=== PATIENT | male | born 2005 | race Caucasian/White ===

== ENCOUNTER 2024-02-27 16:22 | Outpatient (CLI) | payer OTHER, SELFPAY | END 2024-02-27 16:23 | disposition home or self-care (01) | LOC: NFLDREF 03-18 05:36 | PROVIDERS: Visit Provider Family Medicine | DX: R30.0 Dysuria (principal); A64 Unspecified sexually transmitted disease | CPT/HCPCS: 87086; 87491; 87591 ==

== ENCOUNTER 2025-06-14 13:23 | Emergency (ER) | payer OTHER, SELFPAY ==
--- OUTSIDE RECORDS SUMMARY | 2025-06-14 13:26 | XMS_ITS | Clinical Summary ---
Author Organization [facility] Address [address] [place] [id number] Care Team Providers Care Automobile Mechanic Name Role Phone Unavailable Primary Care Provider Unavailabl e Allergies No known active allergies Medications NO ACTIVE MEDICATIONS Active Active Problems No known active problems Social History Tobacco Use Types Packs/Day Years Used Date Smoking Tobacco: Never Alcohol Use Standard Drinks/Week Comments Not Asked 0 (1 standard drink = 0.6 oz pur e alcohol) Adolescent Education Answer Date Record ed Getting School Help Needed Not on file 06/23 Sex and Gender Information Value Date Recorded Sex Assigned at Not on file Legal Sex Male 4:32 AM FOCUSER Gender Identity Not on file Sexual Orientation Not on file Last Filed Vital Signs Vital Sign Reading Time Taken Comments Blood Pressure 111/61 08/14/2021 7:49 PM FOCUSER Pulse 71 08/14/2021 7:49 PM FOCUSER Temperature 36.2 C (97.1 F) 08/14/2021 7:49 PM FOCUSER Respiratory Rate 16 08/13/2010 3:02 PM FOCUSER Oxygen Saturation 100% 08/14/2021 7:49 PM FOCUSER Inhaled Oxygen Concentration - - Weight 62.6 kg (138 lb 1.6 oz) 08/14/2021 7:49 P M FOCUSER Height 144.8 cm (4' 9) 05/21/2014 8:01 PM CDT Body Mass Index - - Plan of Treatment Not on file Insurance MEDICA CHOICE MEDICA CHOICE Member Subscriber Plan / Payer (Ef fective 2020-Present) Name:Hudson Rivera Relation to Subscriber:Child Name:Ole Rivera Date of :1974 (Home) Address: [address] [place] [id number] Payer ID:[id number] (NAIC) Type:Indemnity Address: [place] [id number]
--- OUTSIDE RECORDS SUMMARY | 2025-06-14 13:26 | XMS_ITS | Clinical Summary ---
Author Organization [employer] [facility] Address [address] [place] [address] Care Team Providers Care Bakery Supervisor Name Role Phone Vince Chow MD Primary Care Provider [phone] Allergies Active Allergy Reactions Criticality Noted Date Comments Tree Nuts Throat Swelling/Closing High 08/13/2024 Medications cetirizine (ZYRTEC) 10 mg tabletIndications:Jono rgic rhinoconjunctivitis Take 1 Tablet (10 mg) by mouth once daily. 90 Tablet 3 021 Active EPINEPHrine (EPIPEN) 0.3 mg/0.3 mL auto-injectorIndicatio ns:Food allergy Inject 0.3 mg (1 Pen) intramuscular each time if needed for Allergic Reaction. 2 Each 1 024 Active fluticasone (50 mcg per actuation) nasal solution (FLONASE)Indications:O talgia of left ear Inhale 2 Sprays in both nostrils once daily. 16 g 025 Active Active Problems Problem Noted Date Diagnosed Date Anemia, unspecified 10/30/2007 Overview (10/30/2007): improved on iron supplement Resolved Problems Problem Noted Date Diagnosed Date Resolved Date Ocular migraine 11/15/2021 03/10/2025 Blurred vision 11/15/2021 03/10/2025 Visual disturbance 11/15/2021 Febrile convulsions (simple), unspecified 10/30/2005 03/16/2022 Convulsions in 10/19/200503/16 Overview (10/19/2005): febrile, nl mri brain, spinal tap Encounters Date Type Department Care Team Description 05/30/2025 11:35 AM CDT Office Visit [facility] [address] [place] [phone] Mukesh Dorman PA Throat Problem (Sore throat); Ear Problem (Left ear pain) 05/30/2025 Travel 03/30/2025 8:45 AM CDT Office Visit [facility] [address] [place] [address] Vince Chow MD Physical (Annual, labs ); Urinary Problem 03/30/2025 Travel from Last 3 Months Immunizations Immunization Administration Dates Next Due AMB Influenza, (Flumist) Dedra e Intranasal,LAIV4 (Flu Clinic Only) 06/29/2014,07/29/2013,07/21/2010 AMB Influenza, IIV4 PF (=>6 mos Flulaval,Fluzone Fluarix)(Flu Clinic Only) 08/01/2019,07/26/2018 COVID-19 vaccine (Etix NTech 30mcg/0.3mL) PF, MDV 02/02/2021 DTaP 02/19/2005 LUiE-TlyE-MLA (Pediarix) 06/01/2004,03/28/2004,0 01/20/2004 DTaP-IPV (Kinrix) 12/01/2008 HIB PRP-OMP (PedvaxHIB) 11/29/2004,08/23,03/28/2004,01/19 HPV 9 (Gardasil 9) 07/20/2016,01/24/2016 Hepatitis A (Peds) 07/29/2013,08/26/2012 Influenza A (H1N1), Inactiva marie (Age >=3 Years) 08/18/2009 Influenza Virus, Unspecified 08/17/2005,08/23/20 04,07/21/2004 Influenza, IIV3 (Age 6-35 mos) 08/02/2006 Influenza, IIV3 (Age >=3 years) 08/05/2007 Influenza, IIV4 08/21/2023, 2,07/27/2020,08/02,07/20/2016,07/08/2015 Influenza,LAIV4 Live Intrana christa (Flumist) 08/26/2012,08/02/2011,07/14/2009,08/06 MENINGOCOCCAL VACCINE 2 VIAL 2MO-55YO (MENVEO) 07/27/2020,01/24/2016 MMR 12/01/2008,11/29/2004 Meningococcal B 03/16/2022 Pneumococcal conj 7-Valent (Prevnar 7) 5,06/01/2004,01/20/2004 Tdap 01/24/2016 Varicella Vaccine 12/01/2008,10/30/2005 Family History Medical History Relation Name Comments Seizures Brother febrile Allergies Father htn, melanoma Stroke Maternal Grandfather Good Health Mother Cancer Paternal Grandmother Relation Name Status Comments Brother Alive Father Alive Maternal Grandfather Mother Alive Paternal Grandmother Sister Alive Social History Tobacco Use Types Packs/Day Years Used Date Smoking Tobacco: Never Smokeless Tobacco: Never Comments:No passive smoke ex posure Alcohol Use Standard Drinks/Week Comments Yes 1 (1 standard drink = 0.6 oz pur e alcohol) occasion PHQ-2 Answer Date Recorded PHQ-2 TOTAL SCORE 0 03/30/2025 Social Connections Answer Date Recorded Do you often feel lonely or isolated from those around you? 0 03/30/2025 Financial Resource Strain Answer Date R ecorded Difficulty of Paying Living Expenses 3 03/30/2025 Difficulty of Paying Living Expenses Not on file 03/30/2025 Food Insecurity Answer Date Recorded Do you worry your food will run out before you are able to buy more? 1 03/30/2025 Transportation Needs Answer Date Record ed Does lack of transportation keep you from medica l appointments? 1 03/30/2025 Does lack of transportation keep you from work, meetings or getting things that you need? 1 03/30/2025 Housing Stability Answer Date Recorded What is your housing situation today? 1 03/30/2025 Utilities Answer Date Recorded Do you have trouble paying f or utilities (for example, heat, electricity, water, phone)? 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 Gender Identity Not on file Sexual Orientation Not on file Obstetrics History Last Filed Vital Signs Vital Sign Reading Time Taken Comments Blood Pressure 111/73 05/30/2025 11:34 AM CDT Pulse 64 05/30/2025 11:34 AM CDT Temperature 36.3 C (97.3 F) 05/30/2025 11:34 AM CDT Respiratory Rate 16 05/30/2025 11:3 4 AM CDT Oxygen Saturation 98% 05/30/2025 11: 34 AM CDT Inhaled Oxygen Concentration - - Weight 63.9 kg (140 lb 14.4 oz) 03/30/2025 8:50 AM CDT Height 188 cm (6' 2) 03/30/2025 8:50 AM CDT Body Mass Index 18.09 03/30/2025 8:50 AM CDT Plan of Treatment Health Maintenance Due Date Last Done Comments COVID-19 vaccine series ( season) 2025 08/21/2023, 09/18/2022, 09/09/2021, Additional history exists Influenza Vaccine (#1) 2025 , 08/25/2022, 07/27/2020, Additional history exists Tetanus booster 01/23/2026 01/24/2016 BMI (ht and wt on same day) for age 18+ 03/30/2026 03/30/2025, 08/13/2024, 01/03/2024, Additional history exists Depression screening for age 12+ 03/30/2026 03/30/2025, 08/13/2024, 05/28/2023, Additional history exists RSV vaccine for adults or (1 - 1-dose 75+ series) 2078 Hepatitis B series for 19+ Completed 06/01, 03/28/2004, 01/20/2004 Pneumococcal series for age 6-49 Aged Out 02/19/2005, 06/01/2004, 01/20/2004 No longer eligible based on patient's age to complete this topic HPV series for age 9-45 Completed 07/20/2016, 01/23 Meningococcal series for age 11-21 Completed 07/27/2020, 01/24/2016 Hepatitis C screening for age 18-79 Completed 04/10/2024, 02/24/2024, 09/25/2023, Additional history exists HIV for age 15-65 Completed 03/30/2025, , 02/24/2024, Additional history exists Procedures Procedure Name Priority Date/Time Associated Diagnosis Comments STREP A PCR Routine 05/30/2025 11:40 AM CDT Throat pain THROAT RAPID STREP ONLY CLINIC Routine 05/30/2025 11:40 AM CDT Throat pain GC CHLAMYDIA TRACH PROBE Routine 03/30/2025 9:31 AM CDT Urethral discharge TREPONEMA PALLIDUM Routine 03/30/2025 9: 25 AM CDT STD exposure ANTI HIV 1/2 Routine 03/30/2025 9:25 AM CDT STD exposure CBC W PLT NO DIFF Routine 03/30/2025 9:2 5 AM CDT Anemia, unspecified type ANTI HCV Routine 04/10/2024 11:40 AM CDT STD exposure from Last 3 Months or Most Recently Relevant to Health Maintenance Results * STREP A PCR (05/30/2025 11:40 AM CDT) GROUP A STREP Negative 05/30/2025 10:29 PM CDT [facility] Throat SPECIMEN FROM THROAT / Unknown Non-Blood / Unknown 05/30/2025 11:40 AM CDT 05/30/2025 11:51 AM CDT Mukesh Blakely MICROBIOLOGY Sara l Result [facility] [address] [place] [address], [place] * THROAT RAPID STREP ONLY CLINIC (05/30/2025 11:40 AM CDT) POC, GROUP A STREP NOT DETECTED NOT DETECTED 05/30/2025 11:53 AM CDT [facility] Comment: The [place] [employer] recommends that a throat culture be performed if a rapid group A streptococcus assay yields a negative result. The [employer] recommends Streptococcus, Group A culture. Throat SPECIMEN FROM THROAT / Unknown Non-Blood / Unknown 05/30/2025 11:40 AM CDT 05/30/2025 11:43 AM CDT Mukesh Blakely MICROBIOLOGY Sara l Result [facility] [place] [phone], [address] [address], [place] * GC CHLAMYDIA TRACH PROBE (03/30/2025 9:31 AM CDT) CHLAMYDIA PROBE Negative 5:00 PM CDT [facility] N GONORRHOEAE PROBE Negative 03/30/2025 5:00 PM CDT [facility] Other URINE SPECIMEN / Unknown Non-Blood / Unknown 03/30/2025 9:31 AM CDT 03/30/2025 9:32 AM CDT Vince Chow MD MICROBIOLOGY Final Resu lt [facility] [address] [place] [id number], [place] * TREPONEMA PALLIDUM (03/30/2025 9:25 AM CDT) TREPONEMA PALLIDUM Non-Reacti ve Non-Reacti ve 03/30/2025 12:57 PM CDT [facility] Blood BLOOD SPECIMEN / Unknown [facility] / Unknown 03/30/2025 9:25 AM CDT 03/30/2025 9:35 AM CDT Vince Chow MD SEND OUTS Final Resu lt [facility] [address] [place] [address], [place] * CBC W PLT NO DIFF (03/30/2025 9:25 AM CDT) WHITE BLOOD CELL COUNT 5.7 3.8 - 10.8 Thousand/u L 03/31/2025 2:57 AM CDT [facility] RED BLOOD CELL COUNT 4.83 4.20 - 5.80 Million/uL 03/31/2025 2:57 AM CDT [facility] HEMOGLOBIN 13.6 13.2 - 17.1 g/dL 03/31/2025 2:57 AM CDT [facility] HEMATOCRIT 42.0 38.5 - 50.0 % 03/31/2025 2:57 AM CDT [facility] MCV 87.0 80.0 - 100.0 fL 03/31/2025 2:57 AM CDT [facility] MCH 28.2 27.0 - 33.0 pg 03/31/2025 2:57 AM CDT [facility] MCHC 32.4 32.0 - 36.0 g/dL 03/31/2025 2:57 AM CDT [facility] Comment: For adults, a slight decrease in the calculated MCHC value (in the range of 30 to 32 g/dL) is most likely not clinically significant; however, it should be interpreted with caution in correlation with other red cell parameters and the patient's clinical condition. RDW 12.8 11.0 - 15.0 % 03/31/2025 2:57 AM CDT [facility] PLATELET COUNT 255 140 - 400 Thousand/u L 03/31/2025 2:57 AM CDT [facility] MPV 8.7 7.5 - 12.5 fL 03/31/2025 2:57 AM CDT [facility] Blood BLOOD SPECIMEN / Unknown [facility] / Unknown 03/30/2025 9:25 AM CDT 03/30/2025 9:35 AM CDT Vince Chow MD HEMATOLOGY Final Resu lt Performing Organization Address [facility] de Phone Number [facility] [address] [phone], * ANTI HIV 1/2 (03/30/2025 9:25 AM CDT) HIV AG/AB, 4TH GEN NON-REACT KEEGAN NON-REACT KEEGAN 03/31/2025 12:51 PM CDT [facility] HIV FINAL INTERPRETATOIN SEE NOTE 03/31/2025 12:51 PM CDT [facility] Comment: HIV Negative HIV-1 antigen and HIV-1/HIV-2 antibodies were not detected. There is no laboratory evidence of HIV infection. Blood BLOOD SPECIMEN / Unknown [facility] / Unknown 03/30/2025 9:25 AM CDT 03/30/2025 9:35 AM CDT Vince Chow MD SEND OUTS Final Resu lt Performing Organization Address [facility] de Phone Number [facility] [address] [phone], * ANTI HCV (04/10/2024 11:40 AM CDT) Pathologist [facility] HEPATITIS C ANTIBODY Non-Reacti ve Non-React keegan 04/10/2024 7:00 PM CDT [facility] Comment:Please note, per www .CDC.gov: If a patient is known to be at high risk of HCV infection, or is symptomatic, and the physician's suspicion of HCV infection is high, HCV RNA testing is often employed and is of diagnostic value, even after an initial negative anti-HCV test result. Blood BLOOD SPECIMEN / Unknown Venipuncture / Unknown 04/10/2024 11:40 AM CDT 04/10/2024 11:41 AM CDT Vince Chow MD SEND OUTS Final Resu lt [facility] [address] [place] [address], from Last 3 Months or Most Recently Relevant to Health Maintenance Insurance [facility] [employer] [facility] Care Teams Bakery Supervisor Relationship Specialty Start Date End Date Vince Chow MD [address] [place] [id number] PCP - General 05/03/05
[2025-06-14 13:38] VITALS: BP 125/78; PULSE 80; RESP 18; TEMP 36.4; O2SAT 98; BMI 18.6
--- NOTE | 2025-06-14 15:29 | ED_ITS ---
HPI - General Adult General Date Seen: 06/14/25 Chief complaint: Abdominal Pain Stated complaint: heart burn/throwing up Time Seen by Provider: 06/14/25 15:28 History of Present Illness HPI narrative: 19-year-old male presenting to the ER today for vomiting and heartburn. He was evaluated by an EMT at his college campus, who recommended they come here to the ER. Says he felt well this morning and then was eating a teriyaki be able for lunch and started vomiting. He does have multiple food allergies. Also history of GERD and heartburn but never with throwing. Per medical record he had been treated with a course of doxycycline last year. He reports that he is not currently on that antibiotic. He does have a history of multiple food allergies including to multiple tree nuts, ragweed which then can cross contaminate multiple fresh fruits and vegetab les. He also reports a history of reflux as a child and had been on Pepcid in the past but is currently not on any anti acid prescription medications. He has fairly significant reflux at least a couple of times per week and typically takes Tums to manage it. He typically does not vomit but does often feel heartburn. He is a student at [employer]. He generally tends to eat a fairly restrictive diet at [employer] mostly white rice and chicken. Today at lunch she was trying to Branch out and eat a pizarro acute be full. As far as he knew he would not react to that new food. He just had 1 bite of this hot teriyaki beef when he suddenly had onset of heartburn. He took a Tums. With this he became nausea and threw up (liquidy and Tums that he had taken). After that he was having some ongoing burning chest pain that he thought was heartburn. He was checked out by [place] supervisor assembling and then brought here to the ER. Now that he is here in the ER he says he is feeling better. No further nausea. Heartburn is resolved. He feels fine. He is not having any chest pain. No pain with breathing. No back pain. No abdominal pain. No fever. He was healthy and well this morning. Related Data Home Medications ?Medication ?Instructions ?Recorded ?Confirmed epinephrine 0.3 mg/0.3 mL IM 10/08/23 02/27/24 injection, auto-injector Previous Rx's ?Medication ?Instructions ?Recorded doxycycline hyclate 100 mg tablet 100 mg PO BID #20 ta bs 02/27/24 omeprazole 40 mg capsule,delayed 40 mg PO DAILY #30 ca ps 06/14/25 release Allergies Allergy/AdvReac Type Severity Reaction Status Date / Time No Known Drug Allergies Allergy Verified 02/27/24 16:06 [facility] Medical History (Updated 06/14/25 @ 15:45 by Dionicio Gamez MD) Dysuria ?R30.0 - Dysuria (ICD-10) Viral URI ?J06.9 - Acute upper respiratory infection, unspecified (ICD-10) Social History Smoking Status: Never smoker Exam Narrative: Exam Narrative: Constitutional: Appears well-developed and well-nourished. Alert. Conversant and polite. He has a detailed historian. Good memory. Non toxic. HENT: Head: Atraumatic. Nose: Nose normal. Mouth/Throat: Oral mucosa is clear and moist. no trismus. Pharynx normal. T onsils symmetric. No tonsillar enlargement, erythema, or exudate. Eyes: Conjunctivae normal. EOM normal. Pupils equal, round, and reactive to light. No scleral icterus. Neck: Normal range of motion. Neck supple. No tracheal deviation present. Cardiovascular: Normal rate, regular rhythm. No gallop. No friction rub. No murmur heard. Symmetric radial artery pulses. No chest wall crepitus. Pulmonary/Chest: Effort normal. No stridor. No respiratory distress. No wheezes. No rales. No rhonchi . No tenderness. Abdominal: Soft. Bowel sounds normal. No distension. No mass. No tenderness. No epigastric or right upper quadrant tenderness. No other tenderness. No rebound. No guarding. Musculoskeletal: RUE: Normal range of motion. No tenderness. No deformity LUE: Normal range of motion. No tenderness. No deformity RLE: Normal range of motion. No edema. No tenderness. No deformity LLE: Normal range of motion. No edema. No tenderness. No deformity Neurological: Alert and oriented to person, place, and time. Normal strength. CN II-VII intact. No sensory deficit. GCS eye subscore is 4. GCS verbal subscore is 5. GCS motor subscore is 6. Normal coordination Skin: Skin is warm and dry. No rash noted. No pallor. Normal capillary refill. Psychiatric: Normal mood. Normal affect. Const: Vital Signs, click to edit/add: Vital Signs - 24 hr 06/14/25 13:38 Temperature 97.6 F Pulse Rate [Pulse Oximeter] 80 Respiratory Rate 18 Blood Pressure [Ri ght Upper Arm] 125/78 Pulse Oximetry 98 Oxygen Delivery Me thod Room Air Course Vital Signs Vital signs: Initial Vital Signs Temperature 97.6 F 06/14/25 13:38 Temperature Source Temporal Artery Scan 06/14/25 13:38 Pulse Rate 80 06/14/25 13:38 Pulse Rhythm Regular 06/14/25 13:38 Respiratory Rate 18 06/14/25 13:38 Blood Pressure 125/78 06/14/25 13:38 Blood Pressure Mean 93 06/14/25 13:38 Blood Pressure Position Sitting 06/14/25 13:38 Pulse Oximetry 98 06/14/25 13:38 Oxygen Delivery Method Room Air 06/14/25 13:38 Vital Signs Temperature 97.6 F 06/14/25 13:38 Pulse Rate 80 06/14/25 13:38 Respiratory Rate 18 06/14/25 13:38 Blood Pressure 125/78 06/14/25 13:38 Pulse Oximetry 98 06/14/25 13:38 Oxygen Delivery Method Room Air 06/14/25 13:38 Temperature 97.6 F 06/14/25 13:38 Pulse Rate 80 06/14/25 13:38 Respiratory Rate 18 06/14/25 13:38 Blood Pressure 125/78 06/14/25 13:38 Pulse Oximetry 98 06/14/25 13:38 Oxygen Delivery Method Room Air 06/14/25 13:38 Medical Decision Making MDM Narrative Medical decision making narrative: Pleasant 19-year-old male seen of [facility] [employer] student presenting to the ER today by [place] mallory RICHARDSON. He has a history of multiple food allergies and also a known history of esophageal reflux. He had an episode of vomiting that was triggered after eating hot tarry a Ki beef at lunch today. He normally does not eat this food. Initial concern was for possible allergic reaction to that food. However symptoms of heartburn and vomiting have completely resolved. He is not having any airway swelling, trouble breathing, hives, or other symptoms of systemic allergic reaction. Unfortunately he had to wait here in the ER lobby for a couple of hours before he could be seen and he has remained asymptomatic over that time. At this point I do not think he needs antihistamines, steroids, or epinephrine. In terms of the vomiting, he suspects it was probably triggered by acid reflux. He is not having any abdominal pain to suggest cholecystitis, pancreatitis. No evidence for tenderness in the abdomen to suggest cholecystitis or early appendicitis. At this point, the patient feels like he is doing better and does not need any further workup. I agree that at this point is reasonable to hold off on further labs or advanced imaging. With the vomiting and burning chest pain earlier consider possible Boerhaave syndrome. However with a couple of hours of being symptom-free, I do not think he needs chest imaging. He is not having any chest wall crepitus, chest pain, fever, pain with breathing, or other history or exam findings to suggest esophageal perforation. He does report fairly frequent episodes of heartburn, at least a couple of times per week. He and I agree that it is reasonable to try him on a prescription for omeprazole. Would recommend close outpatient follow-up with primary care for r jeramymiles in about 1 week. Precautions for return to the ER reviewed. Patient agrees and verbalizes understanding. Questions answered. Discharge Plan Discharge Clinical Impression: Chest pain due to GERD Patient Disposition: Home, Self-Care Condition: Stable Instructions: Chest Pain (DC), GERD (Gastroesophageal Reflux Disease) (DC) Additional Instructions: As we discussed, please come back to the ER right away if you have any concerns; especially if you have worsening chest pain, pain with breathing, fever, worsening heartburn, more vomiting. Right now we suspect that the pain your feeling earlier was probably due to acid hewitt on the inside of your esophagus. Please start on the omeprazole. This medication will help reduce the amount of stomach acid inside her stomach and can reduce acid hewitt in her esophagus and help them heal. If you are not starting to notice improvement in your reflux within the next 7 days, please recheck with your regular doctor. Remember, if you get worse, come back to the ER right away. Prescriptions: New omeprazole 40 mg capsule,delayed release(DR/EC) 40 mg PO DAILY Qty: 30 2RF No Action epinephrine 0.3 mg/0.3 mL auto-injector IM doxycycline hyclate 100 mg tablet 100 mg PO BID Qty: 20 0RF Follow Up/Referrals: Provider,Not a Local [Primary Care Provider, Family Practice] Stand Alone Forms: MyHealth Info Instructions
== END 2025-06-14 16:18 | disposition home or self-care (01) ==
PROVIDERS: Emergency Provider Emergency Medicine; PCP Internal Medicine
DX: K21.9 Gastro-esophageal reflux disease without esophagitis (principal); R07.9 Chest pain, unspecified
CPT/HCPCS: 99282; 99283